=== PATIENT | female | born 1955 | race Caucasian/White ===

== ENCOUNTER 2023-08-14 17:45 | Emergency (ER) | payer MEDICARE, BC, SELFPAY ==
[2023-08-14 17:53] VITALS: BP 115/63; PULSE 73; TEMP 36.9; O2SAT 100
--- NOTE | 2023-08-14 18:13 | XR_ITS ---
The [address] [address] Patient Name: MISAEL BARNES MRN: [id number] date: 1955 Sex: F Assigned Patient Location: ER Current Patient Location: ED.MAIN Accession/Order Number: [id number] Exam Date: 08/14/2023 18:20 Report Date: 08/14/2023 19:05 At the request of: HAYLEY DECKER Procedure: XR hand LT min 3V Exam: Radiographs: XR hand LT min 3V Reason for exam: thumb injury Comparison: None XR/XR hand LT min 3V IMPRESSION: Degenerative changes scattered throughout the left hand and wrist. Possible mild degenerative subluxation of the second and third and CP joints. Osteopenia. Remainder of the left hand radiographs is unremarkable. Electronically authenticated by: CLEVE BONILLA Date: 08/14/2023 19:05
--- NOTE | 2023-08-14 19:17 | ED_ITS ---
HPI HPI - Extremity Injury (Upper) General Chief Complaint: Extremity Injury, Upper Stated Complaint: UPPER EXTREMITY INJURY Time Seen by Provider: 08/14/23 19:14 Source: patient Mode of arrival: Wheelchair Limitations: no limitations History of Present Illness HPI narrative: closed left thumb in car door just [employer]. sustained lac of the thumb. mild pain of the thumb. no weakness. Denies other injury Related Data Allergies Allergy/AdvReac Type Severity Reaction Status Date / Time aspirin [From Percodan] Allergy Mild Nausea Verified 08/14/23 17:53 meperidine [From Demerol] Allergy Mild Nausea Verified 08/14/23 17:53 oxycodone [From Percodan] Allergy Mild Nausea Verified 08/14/23 17:53 NSAIDS (Non-Steroidal AdvReac Mild Verified 08/14/23 17:53 Anti-Inflamma Opioid HPI Opioid Management Most Recent Pain and Opioid Data: Last Pain Scale 5 08/14/23 19:51 Last ED Pain Assessment 08/14/23 19:50 Last MAR Pain Assessment 08/14/23 19:44 Review of Systems ROS Status of ROS 10 or more systems reviewed and unremark able except as noted in history and below Exam Constitutional Vital Signs, click to edit/add: Last Vital Signs Temp 98.5 F 08/14/23 17:53 Pulse 62 08/14/23 19:54 Resp 16 08/14/23 19:54 BP 105/70 08/14/23 19:54 Pulse Ox 97 08/14/23 19:54 O2 Del Method Room Air 08/14/23 19:54 Common normals: no apparent distress, average body habitus, oriented x3, no limitations, healthy appearing, alert and well nourished [facility] Common normals: normocephalic and head/scalp atraumatic Eye Common normals: EOMs intact bilaterally and conjunctivae normal Respiratory Common normals: normal respiratory effort, no retractions, no use of accessory muscles and clear to auscultation bilaterally Cardio Common normals: regular rate, regular rhythm, S1 normal heart sound and S2 normal heart sound Extremity Other: superficial flap lac dorsum left thumb. does not involve the nail. no swelling or discoloration or deformity Neuro Common normals: oriented x3, CN's II-XII intact bilaterally and no focal motor deficits Psych Appearance: grossly normal Course Vital Signs Vital signs: Vital Signs Temperature 98.5 F 08/14/23 17:53 Pulse Rate 73 08/14/23 17:53 Respiratory Rate 17 08/14/23 17:53 Blood Pressure 115/63 08/14/23 17:53 Pulse Oximetry 100 08/14/23 17:53 Temperature 98.5 F 08/14/23 17:53 Pulse Rate 62 08/14/23 19:54 Respiratory Rate 16 08/14/23 19:54 Blood Pressure 105/70 08/14/23 19:54 Pulse Oximetry 97 08/14/23 19:54 Oxygen Delivery Method Room Air 08/14/23 19:54 MDM - Extremity Injury (Upper) MDM Narrative Medical decision making narrative: presents to the Er after closed left thumb in car door and lacerating her finger. No deformity of the finger. xray neg for acute findings. lac repaired as above and patient discharged home Imaging Data Chest x-ray: Radiologist's impression: ITS Impressions Hand X-Ray 08/14/23 18:13 IMPRESSION: Degenerative changes scattered throughout the left hand and wrist. Possible mild degenerative subluxation of the second and third and CP joints. Osteopenia. Remainder of the left hand radiographs is unremarkable. Electronically authenticated by: CLEVE BONILLA Date: 08/14/2023 19:05 Discharge Plan Discharge Stand Alone Forms: Portal Instructions Chief Complaint: Extremity Injury, Upper Clinical Impression: Laceration of finger Patient Disposition: Home, Self-Care Print Language: Wolof Instructions: Laceration (ED) Additional Instructions: have wound rechecked in 2-4 days and stitches removed in 10 Referrals: AISHA SANTIAGO [Primary Care Provider] - 1 week Procedures ED Procedure Instructions Procedures Procedures: left thumb lac. 2.8cm superficial lac. dorsum thumb 1% lido with out epi, betadine closed with # 5 5.0 nylon stitches. no complications
[2023-08-14] MEDS: IBUPROFEN 600 MG TABLET PO (19:44)
[2023-08-14] MEDS: LIDOCAINE HCL 1% 100 MG/10 ML MDV INJ (19:45)
[2023-08-14 19:50] VITALS: O2SAT 97
[2023-08-14 19:54] VITALS: BP 105/70; PULSE 62; O2SAT 97
[2023-08-14] MEDS: ADACEL DIPH,PERTUSS(ACELL),TET VAC/PF 0.5 ML ADULT SYRINGE IM (20:01)
[2023-08-14] MEDS: AMOXICILLIN/POTASSIUM CLAV 1 TAB TABLET PO (20:30)
== END 2023-08-14 20:43 | disposition home or self-care (01) ==
PROVIDERS: Emergency Provider Internal Medicine; PCP Family Medicine
DX: S61.012A Laceration without foreign body of left thumb without damage to nail, initial encounter (principal); W23.0XXA Caught, crushed, jammed, or pinched between moving objects, initial encounter; Z23 Encounter for immunization
CPT/HCPCS: 12002; 73130; 90471; 90715; 99284